=== PATIENT | female | born 1945 | race Caucasian/White ===

== ENCOUNTER 2020-03-30 14:49 | Emergency (ER) | payer MEDICARE, BC, SELFPAY ==
[2020-03-30] VITALS (12 sets, daily range): BP systolic 117–172; BP diastolic 63–95; PULSE 80–103; RESP 14–20; TEMP 36.7–36.9; O2SAT 82–99
--- NOTE | 2020-03-30 15:58 | ED_ITS ---
HPI - Skin/Abscess/Foreign Bdy General Chief complaint: Skin/Abscess/Foreign Body Stated complaint: states lost a lot of blood today Time Seen by Provider: 03/30/20 15:57 Source: patient Mode of arrival: Family Vehicle Limitations: no limitations History of Present Illness HPI narrative: The patient was diagnosed with right breast cancer in about 2014, living at that time and [place]. She has been living in [place] most recent, moving back to [facility] earlier this year. She received treatment in [place] including low-dose chemotherapy. She has never undergone radiation therapy. She has never had surgery. She is not been seen by Oncology, she is seeking only palliative care at this time. She was briefly seen by a surgeon in [place], the surgeon denied to resect lesion without further oncology care. She presents today with sudden onset of bleeding from the right chest wall mass. She has eyes weakness, or dizziness. She has no chest pain or dyspnea. She has no hemoptysis. She has no bleeding disorder. Related Data Previous Rx's Medication Instructions Recorded tramadol 50 mg PO Q6-8H PRN #30 tab 03/30/20 Allergies Allergy/AdvReac Type Severity Reaction Status Date / Time morphine AdvReac Mild ITCHING Verified 03/30/20 15:15 Review of Systems Review of Systems ROS Unobtainable: All systems reviewed & are unremarkable except as noted in HPI and below Constitutional Constitutional: Denies chills, Denies fever(s) and Denies weakness ENT Ears, Nose, Mouth, and Throat: Denies dizziness, Denies neck pain and Denies sore throat Cardiovascular Cardiovascular: Denies chest pain, Denies irregular heart rhythm, Denies lightheadedness and Denies dyspnea Respiratory Respiratory: Denies cough, Denies hemoptysis, Denies dyspnea and Denies wheezing Gastrointestinal Gastrointestinal: Denies abdominal pain, Denies change in bowel habits, Denies diarrhea, Denies nausea and Denies vomiting Musculoskeletal Musculoskeletal: Denies back pain, Denies neck pain and Denies numbness Integumentary/Breasts Skin/Breast: Denies pruritus and Denies rash Comments: Left breast mass, fungating lesion right breast. Neurologic Neurologic: Denies confusion, Denies dizziness, Denies numbness and Denies weak ness Psychiatric Psychiatric: Denies confusion Allergic/Immunologic Allergic/Immunologic: Denies wheezing Patient History Medical History Breast cancer (Acute) Surgical History No pertinent past surgical history (Acute) Social History Smoking Status: Former smoker Smoking Status: Former smoker alcohol intake frequency: 0-2 drinks per day Substance Use Type: does not use Exam Initial Vital Signs Initial Vital Signs: Vital Signs Temperature 98.4 F 03/30/20 15:07 Pulse Rate 103 H 03/30/20 15:07 Respiratory Rate 18 03/30/20 15:07 Blood Pressure 117/63 03/30/20 15:07 Pulse Oximetry 97 03/30/20 15:07 Const General: cooperative and well developed Nutritional Appearance: well nourished HENMT Mouth: oral mucosae normal Throat: posterior oropharynx normal Neck Neck: No lymphadenopathy Thyroid: thyroid normal Chest Other: Large fungating lesion at the site of the right breast, with multiple sites of hemorrhage. Palpable large mass in the left breast. Resp Effort & Inspection: normal respiratory effort and able to speak in complete sentences Auscultation: clear to auscultation bilaterally, no rales, no rhonchi and no wheezes Cardio Rate: regular rate Rhythm: regular rhythm Heart Sounds: S1 normal, no click, no gallops, no murmurs and no rubs Pulses: normal peripheral pulses GI Inspection: non-distended Palpation: soft, no hepatosplenomegaly, No guarding, No pulsatile mass and No tender Auscultation: normal bowel sounds Skin Other: See chest exam above. Neuro General: patient alert, patient oriented x3, gait normal and no focal motor deficits Speech: speech normal Extrem General: full ROM, no pedal edema and no calf tenderness Course Course Course Narrative: Dr. Gavin, surgery was consulted regarding the hemorrhagic cancer mass. Bleeding was successfully treated with silver nitrate. Non adhesive bandages were applied. The patient has thoracic back pain, she was playing on seeing a chiropractor. She has extensive metastatic lesions on her chest x-ray, no bony mets were identified, however she was asked not to have ma nipulation of her spine because of the potential of bony mets. Tramadol is prescribed. The patient continues to seek a course of palliative care. Dr. Gavin has offered assistance in seeking hospice care. I suggested the patient should least have an appointment with Oncology, they me be quite useful in assisting her with comfort measures such as bleeding or bony pain. Orders Ordered: ED Orders 03/30/20 16:20 XR chest 2V Stat 03/30/20 16:32 Complete Blood Count AUTO DIFF Stat Comprehensive Metabolic Panel Stat Lactate (Lactic Acid) Stat Lipase Stat Packed Cells Stat Partial Thromboplastin Time Stat Procalcitonin Stat Prothrombin Time INR Stat Type and Screen Stat Sodium Chloride (Normal Saline 0.9%) 1,000 mls @ 125 mls/hr IV BOLUS ONE Stop: 03/30/20 23:44 Last Admin: 03/30/20 16:53 Dose: 125 mls/hr Documented by: IQRA Discontinued Medications Silver Nitrate/Potassium Nitrate (Silver Nitrate Stick) 2 each TOP NOW ONE Stop: 03/30/20 16:16 Last Admin: 03/30/20 16:53 Dose: 2 each Documented by: IQRA Tramadol HCl (Ultram) 50 mg PO NOW ONE Stop: 03/30/20 18:17 Last Admin: 03/30/20 18:25 Dose: 50 mg Documented by: IQRA Vital Signs Vital signs: Vital Signs - 8 hr 03/30/20 15:07 03/30/20 16:30 03/30/20 16:36 Temperature 98.4 F Pulse Rate 103 H 89 88 Respiratory Rate 18 20 Blood Pressure 117/63 139/87 Pulse Oximetry 97 97 98 03/30/20 17:00 03/30/20 17:01 03/30/20 17:30 Temperature Pulse Rate 86 91 H 89 Respiratory Rate Blood Pressure 159/77 H 155/90 H Pulse Oximetry 97 99 98 03/30/20 18:16 03/30/20 18:20 Temperature 98.1 F Pulse Rate 86 88 Respiratory Rate 14 Blood Pressure 162/89 H 162/89 H Pulse Oximetry 99 MDM - Skin/Abscess/Foreign Bdy Lab Data Result diagrams: 03/30/20 16:32 03/30/20 16:32 Labs: Lab Results 03/30/20 03/30/20 03/30/20 Range/Units 16:32 16:32 16:32 WBC 9.6 (4.5-11.0) X10^3/uL RBC 3.09 L (4.0-5.2) X10^6/uL Hgb 6.7 L* (12.0-16.0) g/dL Hct 21.5 L (36-46) % MCV 69.7 L (80-100) fL MCH 21.7 L (26-34) PG MCHC 31.1 (30-36) % RDW 17.5 H (11.6-14.8) % Plt Count 456 H (150-400) X10^3/uL Neut % (Auto) 58.9 (50-75) % Lymph % (Auto) 20.0 L (25-40) % [place] % (Auto) 17.3 H (3-14) % Eos % (Auto) 3.6 (2-4) % Baso % (Auto) 0.2 (0-2) % Neut # (Auto) 5600 (3855-0220) /uL Lymph # (Auto) 1900 (3465-0394) /uL [place] # (Auto) 1700 H (0-900) /uL Eos # (Auto) 300 (0-450) /uL Baso # (Auto) 0 (0-100) /uL RBC Morphology See below Hypochromasia 2+ H PT 12.1 (10.1-12.7) SECONDS INR 1.1 (0.9-1.3) APTT 35 (26.4-36.2) SECONDS Sodium (137-145) mmol/L Potassium (3.4-5.1) mmol/L Chloride (98-107) mmol/L Carbon Dioxide (22-32) mmol/L BUN (7-17) mg/dL Creatinine (0.52-1.04) mg/dL Estimated GFR (>60) mL/min BUN/Creatinine Ratio (6-22) Glucose (80-110) mg/dL Lactate (0.7-2.1) mmol/L Calcium (8.4-10.2) mg/dL Total Bilirubin (0.2-1.3) mg/dL AST (14-36) IU/L ALT (<35) IU/L Alkaline Phosphatase (38-126) U/L Total Protein (6.3-8.2) g/dL Albumin (3.5-5.0) g/dL Globulin (1.7-4.1) g/dL Albumin/Globulin Ratio (1.0-2.8) Lipase (23-300) U/L Procalcitonin < 0.05 (<0.5) ng/mL Blood Type Antibody Screen Crossmatch 03/30/20 03/30/20 03/30/20 Range/Units 16:32 16:32 16:32 WBC (4.5-11.0) X10^3/uL RBC (4.0-5.2) X10^6/uL Hgb (12.0-16.0) g/dL Hct (36-46) % MCV (80-100) fL MCH (26-34) PG MCHC (30-36) % RDW (11.6-14.8) % Plt Count (150-400) X10^3/uL Neut % (Auto) (50-75) % Lymph % (Auto) (25-40) % [place] % (Auto) (3-14) % Eos % (Auto) (2-4) % Baso % (Auto) (0-2) % Neut # (Auto) (1824-1907) /uL Lymph # (Auto) (3876-5711) /uL [place] # (Auto) (0-900) /uL Eos # (Auto) (0-450) /uL Baso # (Auto) (0-100) /uL RBC Morphology Hypochromasia PT (10.1-12.7) SECONDS INR (0.9-1.3) APTT (26.4-36.2) SECONDS Sodium 131 L (137-145) mmol/L Potassium 4.1 (3.4-5.1) mmol/L Chloride 100 (98-107) mmol/L Carbon Dioxide 25 (22-32) mmol/L BUN 19 H (7-17) mg/dL Creatinine 0.71 (0.52-1.04) mg/dL Estimated GFR > 60.0 (>60) mL/min BUN/Creatinine Ratio 26.8 H (6-22) Glucose 95 (80-110) mg/dL Lactate 1.0 (0.7-2.1) mmol/L Calcium 9.0 (8.4-10.2) mg/dL Total Bilirubin 0.1 L (0.2-1.3) mg/dL AST 42 H (14-36) IU/L ALT 13 (<35) IU/L Alkaline Phosphatase 138 H (38-126) U/L Total Protein 6.9 (6.3-8.2) g/dL Albumin 3.6 (3.5-5.0) g/dL Globulin 3.3 (1.7-4.1) g/dL Albumin/Globulin Ratio 1.1 (1.0-2.8) Lipase 230 (23-300) U/L Procalcitonin (<0.5) ng/mL Blood Type O Positive Antibody Screen Negative Crossmatch See Detail Imaging Data Chest x-ray: Radiologist's Impression: [address] [address] XRay Report Signed Patient: Denita Fay MMR#: [id number] : 6Acct:[id number] Age/Sex: 75 / FDate of Service: 03/30/20 Loc: ED Accession Number: [id number] Procedure: XR chest 2V Ordering Provider: Bowen Dyer MD PROCEDURE: XR CHEST 2V INDICATIONS: Breast cancer. Bilateral large breast masses. TECHNIQUE: 2 views of the chest were acquired. COMPARISON: None. FINDINGS: Surgical changes and devices: None. Lungs and pleura: Innumerable masslike consolidation are seen scattered throughout bilateral lung quick measures up to 4.6 x 3.2 cm in size in right upper to mid lung field and up to 4.4 x 4.1 cm in size in left infrahilar region. No pleural effusions or pneumothorax. Mediastinum: Mediastinal contours are normal. Heart size is normal. Bones and chest wall: No suspicious bony abnormalities. Soft tissues appear unremarkable. IMPRESSION: Finding is consistent with extensive bilateral pulmonary metastatic lesions. No pleural effusion or pneumothorax. Dictated by: Oscar Suarez M.D. on 03/30/2020 at 16:49 Approved by: Oscar Suarez M.D. on 03/30/2020 at 16:50 Discharge Plan Departure Patient Disposition: Home Clinical Impression: Metastatic breast cancer, Acute blood loss anemia Back pain Qualifiers: Back pain location: thoracic back pain Chronicity: unspecified Back pain laterality: midline Qualified Code(s): M54.6 - Pain in thoracic spine Instructions: Breast Cancer in Women, DI for Thoracic Back Pain Activity Restrictions/Additional Instructions: Take Tylenol 2 tabs every 4 hours, or Advil 3 tablets every 6 hours as needed for pain. Tramadol every 6 hours as necessary for added pain control. Dr. Gavin has offered to contact hospice on your behalf. I suggest you talk to Oncology, if he chose to do so, contact Dr. Gavin's office. I have transfused you a single unit of blood. If he have continued issues with bleeding, you should be re-evaluated for that problem alone. Return the ER as needed. Prescriptions: New tramadol 50 mg tablet 50 mg PO Q6-8H PRN (Reason: pain) Qty: 30 RF: 0 Referrals: Jeff Gavin MD [Physician] -
--- NOTE | 2020-03-30 16:20 | DI.RAD.S_ITS ---
PROCEDURE: XR CHEST 2V INDICATIONS: Breast cancer. Bilateral large breast masses. TECHNIQUE: 2 views of the chest were acquired. COMPARISON: None. FINDINGS: Surgical changes and devices: None. Lungs and pleura: Innumerable masslike consolidation are seen scattered throughout bilateral lung quick measures up to 4.6 x 3.2 cm in size in right upper to mid lung field and up to 4.4 x 4.1 cm in size in left infrahilar region. No pleural effusions or pneumothorax. Mediastinum: Mediastinal contours are normal. Heart size is normal. Bones and chest wall: No suspicious bony abnormalities. Soft tissues appear unremarkable. IMPRESSION: Finding is consistent with extensive bilateral pulmonary metastatic lesions. No pleural effusion or pneumothorax. Dictated by: Oscar Suarez M.D. on 03/30/2020 at 16:49 Approved by: Oscar Suarez M.D. on 03/30/2020 at 16:50
[2020-03-30 16:45] LABS: Add Manual Diff / Slide Review NO; Basophils Absolute Auto 0 /uL (0-100); Basophils Percent Auto 0.2 % (0-2); Eosinophils Absolute Auto 300 /uL (0-450); Eosinophils Percent Auto 3.6 % (2-4); Hematocrit 21.5 % (36-46); Lymphocytes Absolute Auto 1900 /uL (1100-4500); Mean Corpuscular HGB Conc 31.1 % (30-36); Mean Corpuscular Hemoglobin 21.7 PG (26-34); Mean Corpuscular Volume 69.7 fL (80-100); Monocytes Absolute Auto 1700 /uL (0-900); Monocytes Percent Auto 17.3 % (3-14); Neutrophils Absolute Auto 5600 /uL (1500-7000); Neutrophils Percent Auto 58.9 % (50-75); Platelet Count 456 X10^3/uL (150-400); Red Blood Cell Count 3.09 X10^6/uL (4.0-5.2); Red Cell Distribution Width 17.5 % (11.6-14.8); White Blood Cell Count 9.6 X10^3/uL (4.5-11.0)
[2020-03-30 16:52] LABS: INR 1.1 (0.9-1.3); Prothrombin Time 12.1 SECONDS (10.1-12.7)
[2020-03-30 16:53] LABS: Hemoglobin 6.7 g/dL (12.0-16.0)
[2020-03-30] MEDS: SODIUM CHLORIDE 0.9% 1,000 ML 125 ML IV (16:53)
[2020-03-30] MEDS: SILVER NITRATE STICK 2 EACH TOP (16:53)
[2020-03-30 16:55] LABS: PTT Partial Thromboplastin Tim 35 SECONDS (26.4-36.2)
[2020-03-30 16:56] LABS: Alanine Aminotransferase 13 IU/L (<35); Albumin 3.6 g/dL (3.5-5.0); Albumin Globulin Ratio 1.1 (1.0-2.8); Alkaline Phosphatase 138 U/L (38-126); Aspartate Aminotransferase 42 IU/L (14-36); BUN Creatinine Ratio 26.8 (6-22); Bilirubin Total 0.1 mg/dL (0.2-1.3); Blood Urea Nitrogen 19 mg/dL (7-17); Carbon Dioxide 25 mmol/L (22-32); Chloride 100 mmol/L (98-107); Estimated Glomerular Filt Rate > 60.0 mL/min (>60); Globulin 3.3 g/dL (1.7-4.1); Glucose 95 mg/dL (80-110); HEMOLYSIS < 15 (0-50); Lipase 230 U/L (23-300); Potassium 4.1 mmol/L (3.4-5.1); Sodium 131 mmol/L (137-145); Total Protein 6.9 g/dL (6.3-8.2)
[2020-03-30 17:14] LABS: Procalcitonin < 0.05 ng/mL (<0.5)
[2020-03-30 17:46] LABS: Hypochromasia 2+
--- NOTE | 2020-03-30 18:14 | P.CONS_ITS ---
History of Present Illness Consult details Date Patient Seen: 03/30/20 Time Patient Seen: 16:41 Chief complaint: states lost a lot of blood today Reason for consult: Fungating breast cancer Requesting provider: Bowen Dyer Narrative: Patient is a woman with longstanding known breast cancer. She had some form of treatment in [place] though the details are scant. She has been having bleeding from her chest wall intermittently for 2 years. She presents today because of profuse bleeding earlier in the day and possible transfusion. She has declined any can not of operative intervention in the past. She also has declined additional chemotherapy but from our conversation it is not clear that she has talk to anybody locally about her condition. Meds Home Medications and Allergies Allergies Allergy/AdvReac Type Severity Reaction Status Date / Time morphine AdvReac Mild ITCHING Verified 03/30/20 15:15 Review of Systems Review of Systems Narrative: Lives on [facility]. Has a lot of back pain. Has a mass in her left breast as well as the right. She does not have any breast or chest wall pain. She sees a chiropractor about her back pain. She has had back problems for many years. Exam Vital Signs (past 8 hours): - 03/30/20 15:07 03/30/20 16:30 Temperature 98.4 F Pulse Rate 103 H 89 Respiratory Rate 18 20 Blood Pressure 117/63 139/87 Pulse Oximetry 97 97 Oxygen Delivery Method Room Air Narrative Exam Narrative: Patient has a large ulcerative mass which has replaced her breast. There is not really any breast tissue per se on the right side. It feels fixed to the underlying chest wall. The surface is friable. There was a small ooze from 1 spot at this time. On the left side there is a large palpable mass with nipple changes but no ann ulceration yet. Objective Imaging Chest x-ray: My impression: Multiple metastatic deposits throughout both lungs. Radiologist's impression: Same as mine Labs Result Diagrams: 03/30/20 16:32 03/30/20 16:32 Labs: Laboratory Results - last 24 hr 03/30/20 03/30/20 03/30/20 16:32 16:32 16:32 WBC 9.6 RBC 3.09 L Hgb 6.7 L* Hct 21.5 L MCV 69.7 L MCH 21.7 L MCHC 31.1 RDW 17.5 H Plt Count 456 H Neut % (Auto) 58.9 Lymph % (Auto) 20.0 L [place] % (Auto) 17.3 H Eos % (Auto) 3.6 Baso % (Auto) 0.2 Neut # (Auto) 5600 Lymph # (Auto) 1900 [place] # (Auto) 1700 H Eos # (Auto) 300 Baso # (Auto) 0 RBC Morphology See below Hypochromasia 2+ H PT 12.1 INR 1.1 APTT 35 Sodium Potassium Chloride Carbon Dioxide BUN Creatinine Estimated GFR BUN/Creatinine Ratio Glucose Lactate Calcium Total Bilirubin AST ALT Alkaline Phosphatase Total Protein Albumin Globulin Albumin/Globulin Ratio Lipase Procalcitonin < 0.05 Blood Type Antibody Screen Crossmatch 03/30/20 03/30/20 03/30/20 16:32 16:32 16:32 WBC RBC Hgb Hct MCV MCH MCHC RDW Plt Count Neut % (Auto) Lymph % (Auto) [place] % (Auto) Eos % (Auto) Baso % (Auto) Neut # (Auto) Lymph # (Auto) [place] # (Auto) Eos # (Auto) Baso # (Auto) RBC Morphology Hypochromasia PT INR APTT Sodium 131 L Potassium 4.1 Chloride 100 Carbon Dioxide 25 BUN 19 H Creatinine 0.71 Estimated GFR > 60.0 BUN/Creatinine Ratio 26.8 H Glucose 95 Lactate 1.0 Calcium 9.0 Total Bilirubin 0.1 L AST 42 H ALT 13 Alkaline Phosphatase 138 H Total Protein 6.9 Albumin 3.6 Globulin 3.3 Albumin/Globulin Ratio 1.1 Lipase 230 Procalcitonin Blood Type O Positive Antibody Screen Negative Crossmatch See Detail Assessment & Plan Assessment and plan (1) Breast cancer: Status: Acute Assessment & Plan narrative: Patient appears to have bilateral breast cancer. The right side is fixed to her chest wall and there is really no breast tissue that I can feel or see anywhere on the anterior chest wall. It is possible there are some near her clavicle but that area is pretty devoid of tissue. The whole surfaces raw an undulating and hard. There are superficial ulcerations. I am not sure a so called toilet mastectomy would be possible in this patient. I believe to remove this tumor I would have to remove her chest wall. The patient has expressed a lack of interest in having any surgical procedure though she did inquire about it. I talked to her about possible simple interventions that might help her. These might involve metastatic workup with radiation to her spine if her back pain is related to metastatic disease which I think is highly probable. I also talked to her about the possibility of reducing in some way this tumor bulk so that it is an so friable. I explained to her that none of this will be curative but it may make her more comfortable. I also talked to her about the possibility of introducing hospice. She asked with they could do for her and I explained that they could help her with pain management and with nursing care. The patient lives alone on [facility] and this could be quite a challenging problem for her as she continues to deteriorate. I asked her to think about all this and I will contact the hospice social worker in the morning since is she has gone home. Hopefully we can arrange something to help the woman. I recommended that they use Vaseline impregnated gauze so that it does not stick to her wounds and cause bleeding. She will be sent home with some pain medication and silver nitrate sticks which she could apply a to any bleeding that occurs in the future. Unfortunately this tumor is in location and has a blood supply that would be difficult to embolize to reduce her risk of bleeding. Other than supportive care a not quite sure at this point what can be offered unless she changes her mind about treatment options, which at this point would probably be quite limited.
[2020-03-30] MEDS: TRAMADOL 50 MG TABLET PO (18:25)
--- NOTE | 2020-04-02 14:23 | ONC.MSW ---
Description: Hospice Referral Coordination Activity: Dr. Gavin contacted this GIRL FRIDAY to assist with coordinating hospice care for this patient that he consulted with in the ED. Pt presented with profuse bleeding from a massive fungating, necrotic breast, along with complaints of back pain that has become unbearable. Imaging showed widespread mets in the lungs, mets suspected in her spine, and both breasts so compromised that surgery is not an option. He states that he would have to resect her chest wall and multiple ribs, which wouldn't help anyway due to the spinal mets and infiltration of both lungs. Pt resides alone on [facility], has NO FAMILY, NO DPOA. She was requesting only palliative care, declined having a consult with an Oncologist. She does identify one friend as a primary contact. Discussed hospice care and answered many questions that she had. She also does not have a PCP, however has set-up an appt. for the near future. She presented as initially resistant to any care, however by the end of the call was understanding of hospice and what it offers, and would like to move forward with an info visit. She knows that she has a poor prognosis and short life expectancy. Will fax clinicals to hospice.
== END 2020-03-30 19:47 | disposition home or self-care (01) ==
PROVIDERS: Emergency Provider Emergency Medicine
DX: C50.919 Malignant neoplasm of unspecified site of unspecified female breast (principal); M54.6 Pain in thoracic spine; D62 Acute posthemorrhagic anemia
CPT/HCPCS: 36415; 36430; 71046; 80053; 83605; 83690; 84145; 85025; 85610; 85730; 86850; 86900; 86901; 96360; 96361; 99285; P9016; J1642

== ENCOUNTER 2020-04-25 13:31 | Emergency (ER) | payer MEDICARE, BC, SELFPAY ==
[2020-04-25] VITALS (17 sets, daily range): BP systolic 132–202; BP diastolic 70–119; PULSE 88–104; RESP 16–18; TEMP 37–37.2; O2SAT 94–99; BMI 18.7
--- NOTE | 2020-04-25 14:13 | ED.WEAKNESS ---
HPI - Weakness General Chief complaint: Weakness Stated complaint: Blood loss, compression fracture in back Time Seen by Provider: 04/25/20 13:46 Source: patient and old records reviewed Mode of arrival: Ambulatory Limitations: no limitations History of Present Illness HPI Narrative: Patient is a 75-year-old female with metastatic breast cancer presenting with generalized weakness. She previously was anemic and needed a blood transfusion in March. She says she only got 1 unit and would prefer to this time. She says her breast cancer is growing exteriorly and frequently bleeds. She did have some bleeding but over the past couple days it has been okay however she feels extremely short of breath and weak whenever she walks. She denies any bloody stools. She is not on any blood thinners. She says doctors told her 5 years ago that she would likely from breast cancer she started going to [facility] she was getting infusions however her last infusion was over 8 months ago. She was previously set up with hospice but has yet to talk with them. She is more interested possibly in palliative care rather than hospice. She is also complaining pain in her spine she feels like there is lump. She says she has been to multiple chiropractors who told her that she has compression fractures it hurts every time she walks. She denies numbness or tingling. MD Complaint: generalized weakness Onset (ago): day(s) Related Data Previous Rx's Medication Instructions Recorded tramadol 50 mg PO Q6-8H PRN #30 tab 03/30/20 lidocaine 1 patch TOP DAILY PRN #30 each 04/25/20 Allergies Allergy/AdvReac Type Severity Reaction Status Date / Time morphine AdvReac Mild ITCHING Verified 03/30/20 15:15 Review of Systems Review of Systems ROS Unobtainable: All systems reviewed & are unremarkable except as noted in HPI and below Constitutional Constitutional: Denies body ache(s), Reports fatigue and Denies frequent falls Eyes Eyes: Denies change in vision, Denies eye discharge, Denies irritation and Denies loss of vision ENT Ears, Nose, Mouth, and Throat: Denies change in voice, Denies neck pain and Denies sore throat Cardiovascular Cardiovascular: Denies chest pain, Denies irregular heart rhythm, Denies lightheadedness, Denies palpitations, Reports dyspnea on exertion and Denies orthopnea Respiratory Respiratory: Reports dyspnea on exertion Gastrointestinal Gastrointestinal: Denies abdominal pain, Denies change in bowel habits, Denies diarrhea, Denies nausea and Denies vomiting Musculoskeletal Musculoskeletal: Reports as per HPI, Reports back pain and Denies neck pain Integumentary/Breasts Skin/Breast: Denies pruritus, Denies erythema, Denies rash and Denies wounds Neurologic Neurologic: Denies frequent falls and Denies loss of vision Endocrine Endocrine: Reports fatigue and Denies palpitations Patient History Medical History Breast cancer (Acute) Surgical History No pertinent past surgical history (Acute) Social History Smoking Status: Former smoker Smoking Status: Former smoker alcohol intake frequency: 0-2 drinks per day Substance Use Type: does not use Exam Initial Vital Signs Initial Vital Signs: Vital Signs Temperature 98.7 F 04/25/20 13:41 Pulse Rate 104 H 04/25/20 13:41 Respiratory Rate 16 04/25/20 13:41 Blood Pressure 132/70 04/25/20 13:41 Pulse Oximetry 96 04/25/20 13:41 GENERAL: Alert elderly female no acute distress HEENT: Head atraumatic,EOMI, pupils reactive, face symmetric, moist mucous membranes CARDIOVASCULAR: Regular rate and rhythm without murmurs, rubs or gallops. RESPIRATORY: Breath sounds equal bilaterally, no wheezes rales or rhonchi. ABDOMEN: Soft, nontender. Normoactive bowel sounds all 4 quadrants. No guarding or rebound. BACK: Thoracic tenderness no step-off EXTREMITIES: Normal range of motion, no clubbing or edema. Neurovascularly intact NEUROLOGICAL: Alert and oriented x4.Normal gait and speech. Cranial nerves II through XII grossly intact. SKIN: No large masses bilaterally no active bleeding slightly foul smell noted on chest and breast area Course Orders Ordered: ED Orders 04/25/20 13:58 Basic Metabolic Panel Stat Complete Blood Count AUTO DIFF Stat Packed Cells Stat Type and Screen Stat 04/25/20 14:29 XR thoracic spine 3V Stat 04/25/20 15:17 Consult to [facility]AR[facility] [employer]ER - Chief Order Dispatcher Stat 04/25/20 15:23 CT chest abd pel w con Stat Discontinued Medications Heparin Sodium (Porcine) (Heparin Flush (Port)) 500 unit IV PRN PRN PRN Reason: Flush Last Admin: 04/25/20 18:16 Dose: 500 unit Documented by: MONICA Vital Signs Vital signs: Vital Signs - 8 hr 04/25/20 13:41 04/25/20 15:08 04/25/20 15:30 Temperature 98.7 F Pulse Rate 104 H 89 95 H Respiratory Rate 16 Blood Pressure 132/70 Pulse Oximetry 96 97 97 04/25/20 15:55 04/25/20 16:00 04/25/20 16:10 Temperature 99 F Pulse Rate 93 H 90 93 H Respiratory Rate 18 Blood Pressure 147/78 H 147/82 H 143/82 H Pulse Oximetry 97 97 04/25/20 16:30 04/25/20 16:35 04/25/20 16:38 Temperature 98.6 F Pulse Rate 88 93 H 90 Respiratory Rate 16 Blood Pressure 159/81 H 145/84 H 145/84 H Pulse Oximetry 99 98 04/25/20 17:00 04/25/20 17:30 04/25/20 17:31 Temperature Pulse Rate 89 99 H 97 H Respiratory Rate Blood Pressure 155/86 H 202/119 H Pulse Oximetry 97 94 95 04/25/20 17:32 04/25/20 17:56 04/25/20 17:59 Temperature 99.0 F Pulse Rate 98 H 95 H Respiratory Rate 16 Blood Pressure 172/92 H 172/92 H Pulse Oximetry 95 95 04/25/20 18:04 04/25/20 18:33 Temperature 98.8 F Pulse Rate Respiratory Rate Blood Pressure 173/85 H Pulse Oximetry MDM - Weakness Lab Data Attestation: I reviewed the patient's lab results. Result diagrams: 04/25/20 13:58 04/25/20 13:58 Labs: Lab Results 04/25/20 04/25/20 04/25/20 Range/Units 13:58 13:58 13:58 WBC 10.4 (4.5-11.0) X10^3/uL RBC 3.14 L (4.0-5.2) X10^6/uL Hgb 6.7 L* (12.0-16.0) g/dL Hct 21.6 L (36-46) % MCV 68.8 L (80-100) fL MCH 21.4 L (26-34) PG MCHC 31.1 (30-36) % RDW 20.8 H (11.6-14.8) % Plt Count 484 H (150-400) X10^3/uL Neut % (Auto) 70.7 (50-75) % Lymph % (Auto) 14.9 L (25-40) % [place] % (Auto) 12.8 (3-14) % Eos % (Auto) 1.4 L (2-4) % Baso % (Auto) 0.2 (0-2) % Neut # (Auto) 7300 H (4714-4081) /uL Lymph # (Auto) 1500 (5927-4206) /uL [place] # (Auto) 1300 H (0-900) /uL Eos # (Auto) 200 (0-450) /uL Baso # (Auto) 0 (0-100) /uL RBC Morphology See below Hypochromasia 2+ H Anisocytosis 1+ H Microcytosis 2+ H Sodium 134 L (137-145) mmol/L Potassium 4.1 (3.4-5.1) mmol/L Chloride 99 (98-107) mmol/L Carbon Dioxide 29 (22-32) mmol/L BUN 18 H (7-17) mg/dL Creatinine 0.71 (0.52-1.04) mg/dL Estimated GFR > 60.0 (>60) mL/min BUN/Creatinine Ratio 25.4 H (6-22) Glucose 118 H (80-110) mg/dL Calcium 8.6 (8.4-10.2) mg/dL Blood Type O Positive Antibody Screen Negative Crossmatch See Detail Imaging Data Extremity x-ray #1: Radiologist Impression: PROCEDURE: XR THORACIC SPINE 3V INDICATIONS: pain, hx active breast CA TECHNIQUE: 3 views of the thoracic spine were acquired. COMPARISON: [facility], CR, XR CHEST 2V, 03/30/2020, 16:29. FINDINGS: Bones: Several thoracic spine anterior wedge deformities are seen, which are believed to be similar to the recent prior CT. S shaped scoliotic curvature is seen. Twelve pairs of ribs can be seen. Soft tissues: Numerous metastatic masses can be seen within the lungs, as previously demonstrated. The aorta demonstrates prominence and tortuosity. A stable left-sided PICC line is seen. IMPRESSION: Numerous thoracic spine compression deformities are seen, which are believed to be similar to the prior chest radiograph. Numerous pulmonary masses are again seen. If it would be helpful for clinical management decision making, please consider a dedicated CT study for further evaluation. Dictated by: Luc Hsu M.D. on 04/25/2020 at 13:51 CT scan - abdomen/pelvis: Radiologist Impression: PROCEDURE: CT CHEST ABD PEL W CON INDICATIONS: cancer pain in spine, pulmonary masses TECHNIQUE: After the administration of intravenous contrast, 5 mm thick sections acquired from the lung apices to the symphysis. 5 mm coronal and sagittal reformats were performed, with additional 7 mm MIP reformats through the lungs. For radiation dose reduction, the following was used: automated exposure control, adjustment of mA and/or kV according to patient size. COMPARISON: [facility], CR, XR CHEST 2V, 03/30/2020, 16:29. [facility], CR, XR THORACIC SPINE 3V, 04/25/2020, 14:26. FINDINGS: Image quality: Excellent. CHEST: Lungs and pleura: No acute airspace opacities. Innumerable pulmonary metastases are seen. There is a 4.5 cm mass seen within the right upper lobe. There is a 5 cm mass within the left lower lobe. No pleural effusions or pneumothorax. Central and peripheral airways appear patent and normal in caliber. Mediastinum: Heart size is normal. No pericardial effusion. No mediastinal or hilar adenopathy by size criteria. Thoracic aorta and central pulmonary arteries are normal in size. Esophagus is normal in caliber. No hiatal hernia. Chest wall: This rib lesions are seen, including expansile rib involving the left posterior lateral 6th rib. Sclerosis and healing fractures can be seen involving the left anterolateral ribs. No axillary or supraclavicular adenopathy by size criteria. Thyroid gland demonstrates no significant abnormality. There is a left-sided PICC line seen, with the tip within the inferior aspect of the superior vena cava. ABDOMEN: Solid organs: Liver is normal in size. A right liver dome lesion is seen, which measures 2.5 cm, as on series 2, image 56. Gallbladder wall is not thickened. Biliary system is non dilated. Pancreas enhances normally. Spleen is normal in size and enhancement. Incidental note is made of accessory splenules along the inferior aspect of the primary spleen. No adrenal nodules. Kidneys demonstrate normal size and enhancement, without hydronephrosis. Peritoneum and bowel: Bowel loops demonstrate normal wall thickness and caliber. No free fluid or air. Colonic diverticulosis is seen, without findings of active diverticulitis. Nodes and vessels: No retroperitoneal or mesenteric adenopathy by size criteria. Aorta and inferior vena cava are normal in size. Miscellaneous: No ventral hernias. PELVIS: Genitourinary: Bladder wall thickness is normal. This patient is status post hysterectomy. No adnexal masses are seen. Miscellaneous: No inguinal hernias or adenopathy. Bones: No suspicious bony lesions. Fractures are seen involving the T11, L1, L2, L3, and L5 levels, with 60-70% loss of height anteriorly at L1. Subtle lytic lesions are seen within the spine. Age-appropriate bony degenerative changes are seen. Moderate S-shaped scoliosis is seen. IMPRESSION: Bilateral chest wall breast masses are seen, larger on the right than on the left. Pulmonary masses are again seen. Bony metastatic disease, with an expansile lesion involving the left posterolateral 6th rib. Numerous anterior wedge deformities are seen, likely related to pathologic fractures. The worst of these is seen at L1. Presumed liver metastasis. Incidental note is made of: Left-sided PICC line S shaped scoliosis Accessory splenules Diverticulosis, without active diverticulitis Hysterectomy Dictated by: Luc Hsu M.D. on 04/25/2020 at 15:11 Approved by: Luc Hsu M.D. on 04/25/2020 at 15:19 MDM Narrative Medical decision making narrative: Patient is found to be anemic similar to her previous presentation she is ordered 1 unit of packed red blood cells. I do recommend that she may be outpatient infusions. She complains of a spinal lump which is actually curvature of the spine. CT does show significant metastasis including 2 ribs and possible liver. Also lytic lesions seen in her spine with compression fractures T11 through L5 Social work has been in to talk with her about palliative and hospice care. She seems to be in quite a bit of denial. Patient states that she does not do both medication I have offered her and written prescription for lidocaine patch for comfort Discharge Plan Departure Patient Disposition: Home Clinical Impression: Anemia, Breast cancer, Compression fracture Discharge Date/Time: 04/25/20 18:33 Instructions: Anemia, DI for Vertebral Fracture Activity Restrictions/Additional Instructions: *You have been diagnosed with anemia, compression fracture *What to do: You need to have your blood recheck next week with her primary care physician and likely will need a another blood transfusion. Blood transfusions can be arranged with her primary care doctor via the infusion clinic at [facility]. Your cancer is significantly advanced and likely playing a role in your anemia. *Continue to take medications as directed Lidocaine patch apply to area for 12 hours and then rate *Follow up with your primary care provider in 2-3 days *Return to ER if you should have increasing pain, worsening shortness of breath, worsening weakness or any new, worsening or concerning symptoms Prescriptions: New lidocaine 5 % adhesive patch,medicated 1 patch TOP DAILY PRN (Reason: pain (scale score 1-3)) Qty: 30 RF: 0 No Action tramadol 50 mg tablet 50 mg PO Q6-8H PRN (Reason: pain) Qty: 30 RF: 0 Referrals: Levar Bunn MD [Non-Staff] -
--- NOTE | 2020-04-25 14:29 | DI.RAD.S_ITS ---
PROCEDURE: XR THORACIC SPINE 3V INDICATIONS: pain, hx active breast CA TECHNIQUE: 3 views of the thoracic spine were acquired. COMPARISON: [facility], CR, XR CHEST 2V, 03/30/2020, 16:29. FINDINGS: Bones: Several thoracic spine anterior wedge deformities are seen, which are believed to be similar to the recent prior CT. S shaped scoliotic curvature is seen. Twelve pairs of ribs can be seen. Soft tissues: Numerous metastatic masses can be seen within the lungs, as previously demonstrated. The aorta demonstrates prominence and tortuosity. A stable left-sided PICC line is seen. IMPRESSION: Numerous thoracic spine compression deformities are seen, which are believed to be similar to the prior chest radiograph. Numerous pulmonary masses are again seen. If it would be helpful for clinical management decision making, please consider a dedicated CT study for further evaluation. Dictated by: Luc Hsu M.D. on 04/25/2020 at 13:51 Approved by: Luc Hsu M.D. on 04/25/2020 at 13:53
[2020-04-25 14:42] LABS: Add Manual Diff / Slide Review NO; Basophils Absolute Auto 0 /uL (0-100); Basophils Percent Auto 0.2 % (0-2); Eosinophils Absolute Auto 200 /uL (0-450); Eosinophils Percent Auto 1.4 % (2-4); Hematocrit 21.6 % (36-46); Lymphocytes Absolute Auto 1500 /uL (1100-4500); Lymphocytes Percent Auto 14.9 % (25-40); Mean Corpuscular HGB Conc 31.1 % (30-36); Mean Corpuscular Hemoglobin 21.4 PG (26-34); Mean Corpuscular Volume 68.8 fL (80-100); Monocytes Absolute Auto 1300 /uL (0-900); Monocytes Percent Auto 12.8 % (3-14); Neutrophils Absolute Auto 7300 /uL (1500-7000); Neutrophils Percent Auto 70.7 % (50-75); Platelet Count 484 X10^3/uL (150-400); Red Blood Cell Count 3.14 X10^6/uL (4.0-5.2); Red Cell Distribution Width 20.8 % (11.6-14.8); White Blood Cell Count 10.4 X10^3/uL (4.5-11.0)
[2020-04-25 14:43] LABS: BUN Creatinine Ratio 25.4 (6-22); Blood Urea Nitrogen 18 mg/dL (7-17); Calcium 8.6 mg/dL (8.4-10.2); Carbon Dioxide 29 mmol/L (22-32); Chloride 99 mmol/L (98-107); Estimated Glomerular Filt Rate > 60.0 mL/min (>60); Glucose 118 mg/dL (80-110); HEMOLYSIS < 15 (0-50); Potassium 4.1 mmol/L (3.4-5.1); Sodium 134 mmol/L (137-145)
[2020-04-25 14:48] LABS: Hemoglobin 6.7 g/dL (12.0-16.0)
--- NOTE | 2020-04-25 15:23 | DI.CT.S_ITS ---
PROCEDURE: CT CHEST ABD PEL W CON INDICATIONS: cancer pain in spine, pulmonary masses TECHNIQUE: After the administration of intravenous contrast, 5 mm thick sections acquired from the lung apices to the symphysis. 5 mm coronal and sagittal reformats were performed, with additional 7 mm MIP reformats through the lungs. For radiation dose reduction, the following was used: automated exposure control, adjustment of mA and/or kV according to patient size. COMPARISON: [facility], CR, XR CHEST 2V, 03/30/2020, 16:29. [facility], CR, XR THORACIC SPINE 3V, 04/25/2020, 14:26. FINDINGS: Image quality: Excellent. CHEST: Lungs and pleura: No acute airspace opacities. Innumerable pulmonary metastases are seen. There is a 4.5 cm mass seen within the right upper lobe. There is a 5 cm mass within the left lower lobe. No pleural effusions or pneumothorax. Central and peripheral airways appear patent and normal in caliber. Mediastinum: Heart size is normal. No pericardial effusion. No mediastinal or hilar adenopathy by size criteria. Thoracic aorta and central pulmonary arteries are normal in size. Esophagus is normal in caliber. No hiatal hernia. Chest wall: This rib lesions are seen, including expansile rib involving the left posterior lateral 6th rib. Sclerosis and healing fractures can be seen involving the left anterolateral ribs. No axillary or supraclavicular adenopathy by size criteria. Thyroid gland demonstrates no significant abnormality. There is a left-sided PICC line seen, with the tip within the inferior aspect of the superior vena cava. ABDOMEN: Solid organs: Liver is normal in size. A right liver dome lesion is seen, which measures 2.5 cm, as on series 2, image 56. Gallbladder wall is not thickened. Biliary system is non dilated. Pancreas enhances normally. Spleen is normal in size and enhancement. Incidental note is made of accessory splenules along the inferior aspect of the primary spleen. No adrenal nodules. Kidneys demonstrate normal size and enhancement, without hydronephrosis. Peritoneum and bowel: Bowel loops demonstrate normal wall thickness and caliber. No free fluid or air. Colonic diverticulosis is seen, without findings of active diverticulitis. Nodes and vessels: No retroperitoneal or mesenteric adenopathy by size criteria. Aorta and inferior vena cava are normal in size. Miscellaneous: No ventral hernias. PELVIS: Genitourinary: Bladder wall thickness is normal. This patient is status post hysterectomy. No adnexal masses are seen. Miscellaneous: No inguinal hernias or adenopathy. Bones: No suspicious bony lesions. Fractures are seen involving the T11, L1, L2, L3, and L5 levels, with 60-70% loss of height anteriorly at L1. Subtle lytic lesions are seen within the spine. Age-appropriate bony degenerative changes are seen. Moderate S-shaped scoliosis is seen. IMPRESSION: Bilateral chest wall breast masses are seen, larger on the right than on the left. Pulmonary masses are again seen. Bony metastatic disease, with an expansile lesion involving the left posterolateral 6th rib. Numerous anterior wedge deformities are seen, likely related to pathologic fractures. The worst of these is seen at L1. Presumed liver metastasis. Incidental note is made of: Left-sided PICC line S shaped scoliosis Accessory splenules Diverticulosis, without active diverticulitis Hysterectomy Dictated by: Luc Hsu M.D. on 04/25/2020 at 15:11 Approved by: Luc Hsu M.D. on 04/25/2020 at 15:19
[2020-04-25 15:51] LABS: Anisocytosis 1+; Hypochromasia 2+; Microcytosis 2+
--- NOTE | 2020-04-25 18:06 | CM.SWNOTE ---
GEOGRAPHIC INFORMATION SYSTEMS DIRECTOR note GEOGRAPHIC INFORMATION SYSTEMS DIRECTOR consult requested for patient. Patient asks GEOGRAPHIC INFORMATION SYSTEMS DIRECTOR to explain differences between palliative and hospice care. GEOGRAPHIC INFORMATION SYSTEMS DIRECTOR provides overview explaining both and inquires about patient's circumstances and needs. Patient states she should have been 4 years ago and that she has already consulted with [facility]. Patient states she is needing help with caregiving needs and wanted to know if this was covered by insurance. GEOGRAPHIC INFORMATION SYSTEMS DIRECTOR looks this up on Medicare.gov and basic caregiving is covered under Medicare benefit. GEOGRAPHIC INFORMATION SYSTEMS DIRECTOR informs patient of this. Patient states she is going to consider hiring private caregiver vs. working with a caregiver through hospice agency. EJ Holcomb
== END 2020-04-25 18:33 | disposition home or self-care (01) ==
PROVIDERS: Emergency Provider Emergency Medicine
DX: M48.55XA Collapsed vertebra, not elsewhere classified, thoracolumbar region, initial encounter for fracture (principal); D64.9 Anemia, unspecified; C50.919 Malignant neoplasm of unspecified site of unspecified female breast; R06.00 Dyspnea, unspecified
CPT/HCPCS: 36415; 36430; 71260; 72072; 74177; 80048; 85025; 86850; 86900; 86901; 99284; P9016; J1642; Q9967

== ENCOUNTER → 2020-08-20 11:00 | Oncology outpatient (ONC) | payer MEDICARE, BC, SELFPAY ==
[2020-05-06] VITALS (9 sets, daily range): BP systolic 140–176; BP diastolic 77–94; PULSE 80–98; RESP 16–20; TEMP 36.4–36.9; O2SAT 97
[2020-05-06 11:44] LABS: Hematocrit 25.9 % (36-46)
[2020-05-06] MEDS: IBUPROFEN 600 MG TABLET PO (15:48)
--- NOTE | 2020-05-06 16:51 | PC.NURSE ---
PT TRANSFERRED TO ACU [id number] Pt transferred to ACU via wheelchair. Second unit of PRBCs transfusing at 180 ml/hr, no adverse effects noted. Report given to MICHELLE Hartmann. RN to draw H&H post transfusion. Pt's jitney driver waiting in [facility] parking lot, phone number given to RN.
[2020-05-06 18:51] LABS: Hematocrit 34.3 % (36-46)
--- NOTE | 2020-05-06 19:23 | PC.NURSE ---
Upon completion of transfusion, the port was de-accessed before the H&H was drawn. Patient would not consent to have blood drawn from a vein and wanted this RN to re-access the port. Two RNs unsuccessfully tried to re-access the port and then an collision worker was called from [facility] to correct the situation. The blood was drawn through the port, sent to lab, then the port was flushed with Heparin and de-accessed. The patient was taken via wheelchair to her car.
--- NOTE | 2020-05-07 09:14 | PC.NURSE ---
IBUPROFEN ORDER 05/06/20 @ 1400: Pt reported 9/10 pain at surgical site on right side of chest. Pt stated she takes ibuprofen at home for pain and that pain does not respond to ice/heat. This RN called PCP (Dr. Bunn) at [facility] to get an order for pain medication. Telephone order was given for ibuprofen 600mg one time dose. After position change, ambulation, and medication, Pt reported pain level decreased to 4/10.
[2020-06-24] VITALS (7 sets, daily range): BP systolic 120–141; BP diastolic 71–96; PULSE 93–98; RESP 16–18; TEMP 36.6–37.3; O2SAT 95
[2020-06-24 17:43] LABS: Hematocrit 30.6 % (36-46); Hemoglobin 10.2 g/dL (12.0-16.0)
[2020-08-20 12:39] VITALS: BP 123/71; PULSE 80; RESP 18; TEMP 36.6
[2020-08-20 12:55] VITALS: BP 120/68; PULSE 92; RESP 15; TEMP 36
[2020-08-20 14:56] VITALS: BP 137/77; PULSE 89; RESP 18; TEMP 36.6
[2020-08-20 17:10] VITALS: BP 168/91; PULSE 96; RESP 18; TEMP 36.9
[2020-08-20 17:13] LABS: Hematocrit 31.4 % (36-46); Hemoglobin 10.1 g/dL (12.0-16.0)
== END ==
PROVIDERS: Referring Provider Family Medicine; Visit Provider Family Medicine
DX: D50.0 Iron deficiency anemia secondary to blood loss (chronic) (principal); C50.919 Malignant neoplasm of unspecified site of unspecified female breast
CPT/HCPCS: 36430; 36591; 85014; 85018; 86850; 86900; 86901; 96523; P9016